=== PATIENT | male | born 2000 | race African-American/Black ===

== ENCOUNTER 2023-06-23 18:29 | Emergency (ER) | payer BC ==
[2023-06-23] MEDS ORDERED: Ipratropium/Albuterol 3 ML NEB ONE ×2 (19:03→20:01)
[2023-06-23] MEDS ORDERED: Dexamethasone 10 MG/ML VIAL ONE (19:19)
[2023-06-23] MEDS ORDERED: Magnesium 2 GM/50 ML BAG (IN WATER) ONE (19:20)
[2023-06-23 19:25] LABS: #Basophils 0.1 thou/uL (0.0-0.2); #Eosinphils 0.3 thou/uL (0.0-0.7); #Monocytes 0.8 thou/uL (0.11-0.59); #Neutrophils 6.5 thou/uL (1.40-6.50); %Basophils 0.5 % (0.0-1.0); %Eosinophils 3.2 % (0.0-10.0); %Monocytes 8.2 % (0.0-10.0); %Neutrophils 63.7 % (42.0-75.0); Hematocrit 48.5 % (42.0-52.0); Hemoglobin 16.2 g/dL (14.0-18.0); Mean Corpuscular HGB CONC 33.4 g/dL (32.0-36.0); Mean Corpuscular Hemoglobin 27.4 pg (27.0-31.0); Mean Corpuscular Volume 82.1 fl (78.0-98.0); Mean Platelet Volume 8.9 fL (7.4-10.4); Platelet Count 417 10x3/uL (130-400); RBC Distribution Width 12.5 % (11.5-14.5); Red Blood Cell (RBC) Count 5.91 mill/uL (4.70-6.10); White Blood Cell (WBC) Count 10.2 10x3/uL (4.8-10.8)
[2023-06-23 19:50] LABS: ALT (SGPT) 30 U/L (8-55); AST (SGOT) 23 U/L (5-34); Albumin 5.1 g/dL (3.5-5.0); Alkaline Phosphatase 94 U/L (40-110); Anion Gap 13 mmol/L (10-20); BUN (Urea Nitrogen) 15 mg/dL (8.9-20.6); Bilirubin, Total 0.7 mg/dL (0.2-1.2); Calc. Creatinine Clearance 0 mL/min (70-130); Calcium 9.8 mg/dL (7.8-10.44); Carbon Dioxide 24 mmol/L (22-29); Chloride 105 mmol/L (98-107); Estimated GFR 124; Globulin 2.9 g/dL (2.4-3.5); Glucose 113 mg/dL (70-105); Potassium 3.7 mmol/L (3.5-5.1); Sodium 138 mmol/L (136-145)
[2023-06-23 19:51] LABS: Troponin I Less than 0.010 ng/mL (< 0.028)
[2023-06-23] MEDS ORDERED: Albuterol 2.5 MG/0.5 ML NEB ONE (20:01)
== END 2023-06-23 21:57 | disposition home or self-care (01) ==
LOC: ERS 18:29
DX: J45.901 Unspecified asthma with (acute) exacerbation (principal); F17.290 Nicotine dependence, other tobacco product, uncomplicated; Z79.899 Other long term (current) drug therapy
CPT/HCPCS: 71045; 80053; 84484; 85025; 93005; 94644; 96361; 96365; 96375; J1100; J3475; J7611; J7620